=== PATIENT | female | born 1985 | race Caucasian/White ===

== ENCOUNTER 2018-04-29 08:48 | Outpatient (RCR) | payer OTHER, SELFPAY ==
--- NOTE | 2018-04-29 10:57 | PT.OPPOC ---
Current Diagnoses Unspecified condition associated with female genital organs and menstrual cycle (04/29/18) Traumatic rupture of symphysis pubis, sequela (04/29/18) Provider Visit Care Team Role Provider Type Verona Shipman MD Attending Provider Physician Primary Care Provider Specialty: TECHNOLOGY ASSISTANT Address: [address] [place] [address], [address] Email: [email or web address] Plan Of Care PT-OP-T Assessment and Plan Start: 04/29/18 07:27 Freq: Status: Active Protocol: Document 04/29/18 09:00 AMB (Rec: 05/05/18 10:53 AMB [email or web address]) Physical Therapy Assessment Goals Two Impairment LE strength Short Term Goal (STG) The patient will be independent with a LE strenghtening HEP. One Impairment Running Short Term Goal (STG) The patient will run for 10 minutes with good form without pain. STG Duration 4 weeks Assisted Goal (LTG) The patient will run and cut on smooth surfaces without pain. Assessment Summary Assessment Norma presents to physical therapy after a flare up of her pubic pain. She is doing well, although her adductor strength could be improved bilaterally. She was instructed in self joint moblization and exercises to perform if her pain does flare up in the future. Since she has high level goals for herself (running) she will benefit from 1-2 more appointments to fine tune her home exercise program and help her return to running and cutting movements without pain . Physical Therapy Plan Frequency and Duration Frequency of Treatment 1x/month Duration of Treatment 2 months Plan of Care Start Date 04/29/18 Plan of Care End Date 06/27/18 Therapeutic Interventions Therapeutic Interventions Home Exercise Program Joint Mobilizations Manual Therapy Neuromuscular Re-education Self-Care/Home Management Therapeutic Activities Therapeutic Exercises Modalities Cold Pack/Ice Massage Hot Packs Next Visit Focus/Plan Next Note Type Treatment Note Next Visit Plan Follow up on pelvic stabilization progression, return to running Plan of Care Dates Plan of Care Start Date 04/29/18 Plan of Care End Date 06/27/18 Please Sign and Return: I have reviewed this Plan of Care and certify that the skilled therapy services above are required to meet the patient?s needs. Physician Signature Date Printed Name and Credentials Clinical Instructor Signature Printed Name and Credentials
--- NOTE | 2018-04-29 10:57 | PT.OIE ---
Current Diagnoses Unspecified condition associated with female genital organs and menstrual cycle (04/29/18) Traumatic rupture of symphysis pubis, sequela (04/29/18) Past Medical History (Last Updated 04/11/18 @ 09:56 by Rivas Schaefer MD) Symphysis pubis disruption, traumatic (Chronic) Provider Visit Care Team Role Provider Type Verona Shipman MD Attending Provider Physician Primary Care Provider Specialty: COVER MAKER Address: [address] [place] [address], [id number] Email: [email or web address] Physical Therapy Initial Evaluation PT-OP-A Visit Information Start: 04/29/18 07:27 Freq: Status: Active Protocol: Document 04/29/18 09:00 AMB (Rec: 05/03/18 16:07 AMB [email or web address]) Out-Patient Physical Therapy Visit Information Visit Information Visit Type Initial Evaluation Visit Start Time 09:00 Visit Stop Time 09:45 Total Visit Minutes 45 Evaluation Information Evaluation Date 05/03/18 PT-OP-B Current Condition Start: 04/29/18 07:27 Freq: Status: Active Protocol: Document 04/29/18 09:00 AMB (Rec: 05/05/18 10:20 AMB [email or web address]) Current Condition History of Current Condition Onset Date January 2018 Current Complaints pubic symphysis discomfort History of Current Condition Norma was seen by this PT after the of her third child for pubic symphysis pain . She rehabed well and was discharged and has been able to return to all activities with the exception of running over uneven terrain. She also continues to sleep with a pillow between her knees because rolling over without one hurts. However in January she twisted down to the ground to sweet pickle maker something that had fallen from her stroller while running and felt a sharp pain in her pubic symphysis. The pain had mostly subsided after the drive home, but she was unable to continue with her run and was concerned so she scheduled a PT appointment . By the time she got in to be seen the pain has mostly subsided but she is concerned about what to do if the pain returns and in general anything she can do to return to a high level of function. Treatment Goals Patient/Caregiver Goals Learn ways to manage pain if it does come back PT-OP-C Subjective Start: 04/29/18 07:27 Freq: Status: Active Protocol: Document 04/29/18 09:00 AMB (Rec: 05/05/18 10:20 AMB [email or web address]) OP-PT Pain Assessment Pain Assessment Grid Paper Pain Assessment Grid Completed Yes Location pubic Intensity 2 Scale Used Numeric (1 - 10) PT-OP-J Posture/Palpation/Skin Start: 04/29/18 07:27 Freq: Status: Active Protocol: Document 04/29/18 09:00 AMB (Rec: 05/05/18 10:30 AMB [email or web address]) Posture Evaluation Comments Posture Comments L leg long in supine. Palpation Assessment Location One Palpation Location pubis Palpation Details No pain with palpation at pubic bone, L appears inferior to R. PT-OP-M Strength Start: 04/29/18 07:27 Freq: Status: Active Protocol: Document 04/29/18 09:00 AMB (Rec: 05/05/18 10:30 AMB [email or web address]) Hip Strength Hip Manual Muscle Testing Right Flexion (L2) 4+ Good+ Extension (S1) 4+ Good+ Abduction 4- Good- Adduction 4- Good- Left Flexion (L2) 4+ Good+ Extension (S1) 4+ Good+ Abduction 4 Good Adduction 4- Good- PT-OP-Q Treatments Start: 04/29/18 07:27 Freq: Status: Active Protocol: Document 04/29/18 09:00 AMB (Rec: 05/05/18 10:30 AMB [email or web address]) Therapeutic Exercises Supine Exercises 1 Supine Exercise Name instruction in pelvic shotgun Sidelying Exercises 1 Sidelying Exercise Name sidelying hip add 2 Sidelying Exercise Name sidelying hip abd PT-OP-T Assessment and Plan Start: 04/29/18 07:27 Freq: Status: Active Protocol: Document 04/29/18 09:00 AMB (Rec: 05/05/18 10:53 AMB [email or web address]) Physical Therapy Assessment Goals Two Impairment LE strength Short Term Goal (STG) The patient will be independent with a LE strenghtening HEP. One Impairment Running Short Term Goal (STG) The patient will run for 10 minutes with good form without pain. STG Duration 4 weeks Farmworkers Goal (LTG) The patient will run and cut on smooth surfaces without pain. Assessment Summary Assessment Norma presents to physical therapy after a flare up of her pubic pain. She is doing well, although her adductor strength could be improved bilaterally. She was instructed in self joint moblization and exercises to perform if her pain does flare up in the future. Since she has high level goals for herself (running) she will benefit from 1-2 more appointments to fine tune her home exercise program and help her return to running and cutting movements without pain . Physical Therapy Plan Frequency and Duration Frequency of Treatment 1x/month Duration of Treatment 2 months Plan of Care Start Date 04/29/18 Plan of Care End Date 06/27/18 Therapeutic Interventions Therapeutic Interventions Home Exercise Program Joint Mobilizations Manual Therapy Neuromuscular Re-education Self-Care/Home Management Therapeutic Activities Therapeutic Exercises Modalities Cold Pack/Ice Massage Hot Packs Next Visit Focus/Plan Next Note Type Treatment Note Next Visit Plan Follow up on pelvic stabilization progression, return to running
--- NOTE | 2018-05-31 11:07 | PT.OPDS ---
Current Diagnoses Unspecified condition associated with female genital organs and menstrual cycle (04/29/18) Traumatic rupture of symphysis pubis, sequela (04/29/18) Provider Visit Care Team Role Provider Type Verona Shipman MD Attending Provider Physician Primary Care Provider Specialty: BENCH MOLDER APPRENTICE Address: [address] [place] [address], [id number] Email: [email or web address] Visit Number Visit Number 1 Discharge Summary PT-OP-B Current Condition Start: 04/29/18 07:27 Freq: Status: Active Protocol: Document 04/29/18 09:00 AMB (Rec: 05/05/18 10:20 AMB [email or web address]) Current Condition History of Current Condition Onset Date January 2018 Current Complaints pubic symphysis discomfort History of Current Condition Norma was seen by this PT after the of her third child for pubic symphysis pain . She rehabed well and was discharged and has been able to return to all activities with the exception of running over uneven terrain. She also continues to sleep with a pillow between her knees because rolling over without one hurts. 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 The pain had mostly subsided after the drive home, but she was unable to continue with her run and was concerned so she scheduled a PT appointment . By the time she got in to be seen the pain has mostly subsided but she is concerned about what to do if the pain returns and in general anything she can do to return to a high level of function. Treatment Goals Patient/Caregiver Goals Learn ways to manage pain if it does come back PT-OP-C Subjective Start: 04/29/18 07:27 Freq: Status: Active Protocol: Document 04/29/18 09:00 AMB (Rec: 05/05/18 10:20 AMB [email or web address]) OP-PT Pain Assessment Pain Assessment Grid Paper Pain Assessment Grid Completed Yes Location pubic Intensity 2 Scale Used Numeric (1 - 10) PT-OP-J Posture/Palpation/Skin Start: 04/29/18 07:27 Freq: Status: Active Protocol: Document 04/29/18 09:00 AMB (Rec: 05/05/18 10:30 AMB [email or web address]) Posture Evaluation Comments Posture Comments L leg long in supine. Palpation Assessment Location One Palpation Location pubis Palpation Details No pain with palpation at pubic bone, L appears inferior to R. PT-OP-M Strength Start: 04/29/18 07:27 Freq: Status: Active Protocol: Document 04/29/18 09:00 AMB (Rec: 05/05/18 10:30 AMB [email or web address]) Hip Strength Hip Manual Muscle Testing Right Flexion (L2) 4+ Good+ Extension (S1) 4+ Good+ Abduction 4- Good- Adduction 4- Good- Left Flexion (L2) 4+ Good+ Extension (S1) 4+ Good+ Abduction 4 Good Adduction 4- Good- PT-OP-T Assessment and Plan Start: 04/29/18 07:27 Freq: Status: Active Protocol: Document 05/31/18 11:05 AMB (Rec: 05/31/18 11:06 AMB [email or web address]) Physical Therapy Assessment Assessment Summary Assessment Pt canceled her last appointment. In a phone call she states that she is doing her exercises and feeling fine so she is ready to be discharged. Physical Therapy Plan Discharge Physical Therapy Discharge Reasons Goals Met
== END 2018-04-30 11:55 ==
LOC: PHYS 08:48
PROVIDERS: PCP Obstetrics & Gynecology; Visit Provider Obstetrics & Gynecology
DX: N94.9 Unspecified condition associated with female genital organs and menstrual cycle (principal); S33.4XXS Traumatic rupture of symphysis pubis, sequela
CPT/HCPCS: 97110; 97161

== ENCOUNTER 2019-02-16 06:47 | Emergency (ER) | payer OTHER, SELFPAY ==
[2019-02-16 06:56] VITALS: BP 134/74; PULSE 102; RESP 21; TEMP 36.6; O2SAT 99; BMI 24.3
--- NOTE | 2019-02-16 06:57 | DI.RAD.S_ITS ---
PROCEDURE: XR CHEST 2V INDICATIONS: SOB TECHNIQUE: 2 views of the chest were acquired. COMPARISON: None. FINDINGS: Surgical changes and devices: None. Lungs and pleura: Lungs are clear. No pleural effusions or pneumothorax. Mediastinum: Mediastinal contours are normal. Heart size is normal. Bones and chest wall: No suspicious bony abnormalities. Soft tissues appear unremarkable. IMPRESSION: No radiographic findings of an acute cardiopulmonary abnormality. Dictated by: Mauri Edmond M.D. on 02/16/2019 at 7:42 Approved by: Mauri Edmond M.D. on 02/16/2019 at 7:43
[2019-02-16] MEDS: SODIUM CHLORIDE 0.9% 1,000 ML 1000 ML IV (07:14)
--- NOTE | 2019-02-16 07:17 | PC.NURSE ---
Pt arrived POV with , AAOx3. reports she was dx with walking pneumonia and placed on zpack. reports nausea and took 1 zofran and was dizzy/lightheaded shortly after and SOB. IV placed and labs drawn. EKG obtained. awaiting CXR. Dr Bar in room to assess.
--- NOTE | 2019-02-16 07:29 | ED.DIZZY ---
HPI - Dizziness General Chief Complaint: Dizziness Stated Complaint: reaction to medicine she took Time Seen by Provider: 02/16/19 06:56 Source: patient Mode of arrival: Family Vehicle Limitations: no limitations History of Present Illness HPI Narrative: Patient comes emergency department complaining nausea cough, shortness breath, and fever for the last approximately 6 days. Patient states that she was exposed to ?walking pneumonia? and went to the walk-in clinic 6 days ago. X-ray was not performed, but provider started the patient on Zithromax ?just in case? she had picked up pneumonia. The patient states her cough seemed to get a little bit better after the Zithromax is started, but she has been feeling nauseated ever since starting the medication. She states that she also had 1 episode of diarrhea on the 1st day of the Zithromax. Patient has been taking Zofran, and states that she been feeling generally ill. She states she has been in bed for the last few days because of the nausea. She states that last night, she began to feel unwell and took her temperature and found it was 101. Patient states that she took a Zofran, and she began to feel dizzy. At that point, patient and her decided to come here. Patient denies any dysuria. No abdominal pain. No chest pain. patient states she feels like she has to catch her breath after talking. She states she had some sore throat initially, but that this has resolved. Patient states she is otherwise healthy. She states she had urosepsis to nap years ago after her child was born. She denies any pain or swelling in her lower extremities. She states she has a possible history of uterine veins clot, but was not on prolonged anticoagulation for this. No family history of DVT. No other complaints at this time. Related Data Previous Rx's Medication Instructions Recorded alprazolam 1 mg tablet 1 mg PO ONCE PRN #6 tab 01/07/19 azithromycin 250 mg tablet See Rx Instructions PO .COMPLEX #6 02/10/19 tab Allergies Allergy/AdvReac Type Severity Reaction Status Date / Time amoxicillin [From AUGMENTIN] Allergy Mild hives Verified 02/10/19 09:16 clavulanic acid Allergy Mild hives Verified 02/10/19 09:16 [From AUGMENTIN] Review of Systems Constitutional Constitutional: Denies chills, Denies fatigue, Reports fever(s), Denies frequent falls, Denies lethargy and Denies weakness Eyes Eyes: Denies change in vision, Denies eye discharge, Denies irritation and Denies loss of vision ENT Ears, Nose, Mouth, and Throat: Denies change in voice, Denies dizziness, Denies neck pain, Denies sore throat and Denies throat swelling Cardiovascular Cardiovascular: Denies chest pain, Denies irregular heart rhythm, Denies lightheadedness, Denies palpitations, Reports dyspnea and Denies orthopnea Respiratory Respiratory: Reports cough, Reports dyspnea and Denies wheezing Gastrointestinal Gastrointestinal: Denies abdominal pain, Denies change in bowel habits, Denies diarrhea, Reports nausea and Denies vomiting Genitourinary Genitourinary: Denies hematuria, Denies flank pain, Denies urinary incontinence and Denies urinary urgency Musculoskeletal Musculoskeletal: Denies back pain, Denies muscle weakness, Denies neck pain, Denies numbness and Denies tingling Integumentary/Breasts Skin/Breast: Denies pruritus, Denies erythema, Denies rash and Denies wounds Neurologic Neurologic: Denies behavioral changes, Denies confusion, Denies dizziness, Denies frequent falls, Denies loss of vision, Denies numbness, Denies tingling and Denies weakness Psychiatric Psychiatric: Denies anxiety, Denies behavioral changes, Denies confusion, Denies depression, Denies homicidal ideation and Denies suicidal ideation Endocrine Endocrine: Denies fatigue, Denies flushing and Denies palpitations Hematologic/Lymphatic Hematologic/Lymphatic: Denies easy bruising Allergic/Immunologic Allergic/Immunologic: Denies urticaria, Denies throat swelling and Denies wheezing Patient History Medical History Spontaneous vaginal delivery (Resolved) Symphysis pubis disruption, traumatic (Chronic) Family History Grandmother Cancer Father Atrial fibrillation Social History marital status: number of children: 3 education level: master's degree occupational status: other Smoking Status: Never smoker alcohol intake: current substance use type: does not use Family History Grandmother Cancer Father Atrial fibrillation Social History marital status: number of children: 3 education level: master's degree occupational status: other Smoking Status: Never smoker alcohol intake: current substance use type: does not use alcohol intake frequency: a few times a week Substance Use Type: does not use Exam Initial Vital Signs Initial Vital Signs: Vital Signs Temperature 97.8 F 02/16/19 06:56 Pulse Rate 102 H 02/16/19 06:56 Respiratory Rate 21 02/16/19 06:56 Blood Pressure 134/74 02/16/19 06:56 Pulse Oximetry 99 02/16/19 06:56 Const General: cooperative and well developed Nutritional Appearance: well nourished Orientation: alert, awake, oriented x3 and not confused HENMT Head: normocephalic and atraumatic Ears: external ears normal and TM's normal bilaterally Nose: external nose normal and No nasal discharge Face and sinus: face symmetric and No dry mucous membranes Mouth: oral mucosae normal and moist mucous membranes Teeth and gingiva: dentition normal Throat: tonsils normal and uvula midline Eyes General: appearance normal, both eyes and all related structures Eyelids: eyelids normal Conjunctivae: conjunctivae normal Sclera: sclerae normal Pupils: PERRL EOM: EOM intact bilaterally Neck Neck: normal visual inspection, trachea midline, No lymphadenopathy, No midline deformity and No JVD Lymphatic: No lymphedema Chest Chest: normal inspection of the chest Resp Effort & Inspection: normal respiratory effort, able to speak in complete sentences, no respiratory distress and no use of accessory muscles Auscultation: clear to auscultation bilaterally, no rales, no rhonchi and no wheezes Cardio Rate: regular rate Rhythm: regular rhythm Heart Sounds: no click, no gallops, no murmurs and no rubs Pulses: normal peripheral pulses GI Inspection: non-distended Palpation: soft, no hepatosplenomegaly, No guarding, No pulsatile mass and No tender Auscultation: normal bowel sounds Back/Spine/Pelvis Back: No CVA tenderness Cervical Spine: cervical ROM normal and No pain with cervical ROM Thoracic/Lumbar Spine: thoracic and lumbar spine normal to inspection Skin General: no rashes or lesions noted, No jaundice and No petechiae Neuro General: alert, oriented x3, gait normal and no focal motor deficits Speech: speech normal Extrem General: full ROM, no clubbing, cyanosis or edema, no pedal edema and no calf tenderness Psych Appearance: well kempt Mental Status: mental status grossly normal Attitude: cooperative Thought Content: normal and suicidality Judgment: judgment good Course Course Course Narrative: Patient was treated with IV fluids and Zofran. She was worked up with labs, EKG, chest x-ray, urinalysis, strep test, and influenza testing. Workup was negative except for the D-dimer, which was significantly elevated. Because of the patient's symptoms and her elevated D-dimer, I did order a CTA of the chest, which was found to be unremarkable. I discussed with the patient that her symptoms are most likely viral in nature, and will most likely be self-limited. We have discussed follow-up with her primary care physician, as well as the usual indications for return. No emergent condition has been identified today. Orders Ordered: Discontinued Medications Sodium Chloride (Normal Saline 0.9%) 1,000 mls @ 1,000 mls/hr IV BOLUS ONE Stop: 02/16/19 07:55 Last Infusion: 02/16/19 08:07 Dose: 0 mls/hr Documented by: Admin: 02/16/19 07:14 Dose: 1,000 mls/hr Documented by: TRELL Vital Signs Vital signs: Vital Signs - 8 hr 02/16/19 06:56 Temperature 97.8 F Pulse Rate 102 H Respiratory Rate 21 Blood Pressure 134/74 Pulse Oximetry 99 MDM - Dizziness Medical Records Attestation: I reviewed the patient's medical records. Lab Data Attestation: I reviewed the patient's lab results. Result diagrams: 02/16/19 07:32 02/16/19 07:32 Labs: Lab Results 02/16/19 02/16/19 02/16/19 Range/Units 07:32 07:32 07:32 WBC 5.7 (4.5-11.0) X10^3/uL RBC 4.78 (4.0-5.2) X10^6/uL Hgb 14.9 (12.0-16.0) g/dL Hct 42.5 (36-46) % MCV 88.9 (80-100) fL MCH 31.1 (26-34) PG MCHC 35.0 (30-36) % RDW 12.0 (11.6-14.8) % Plt Count 258 (150-400) X10^3/uL Neut % (Auto) 62.4 (50-75) % Lymph % (Auto) 30.8 (25-40) % [place] % (Auto) 5.9 (3-14) % Eos % (Auto) 0.6 L (2-4) % Baso % (Auto) 0.3 (0-2) % Neut # (Auto) 3600 (4476-6919) /uL Lymph # (Auto) 1800 (3435-5852) /uL [place] # (Auto) 300 (0-900) /uL Eos # (Auto) 0 (0-450) /uL Baso # (Auto) 0 (0-100) /uL D-Dimer 306 H (<230) ng/mL Sodium 137 (137-145) mmol/L Potassium 4.2 (3.4-5.1) mmol/L Chloride 101 (98-107) mmol/L Carbon Dioxide 25 (22-32) mmol/L BUN 14 (7-17) mg/dL Creatinine 0.90 (0.52-1.04) mg/dL Estimated GFR > 60.0 (>60) mL/min BUN/Creatinine Ratio 15.6 (6-22) Glucose 96 (70-100) mg/dL Calcium 9.4 (8.4-10.2) mg/dL Magnesium 2.1 (1.6-2.3) mg/dL Total Creatine Kinase 92 (30-135) U/L CK-MB (CK-2) TNP CK-MB (CK-2) Rel Index TNP Troponin I < 0.012 (0.01-0.034) ng/mL Influenza A & B (PCR) (Negative) 02/16/19 Range/Units 07:39 WBC (4.5-11.0) X10^3/uL RBC (4.0-5.2) X10^6/uL Hgb (12.0-16.0) g/dL Hct (36-46) % MCV (80-100) fL MCH (26-34) PG MCHC (30-36) % RDW (11.6-14.8) % Plt Count (150-400) X10^3/uL Neut % (Auto) (50-75) % Lymph % (Auto) (25-40) % [place] % (Auto) (3-14) % Eos % (Auto) (2-4) % Baso % (Auto) (0-2) % Neut # (Auto) (4655-1409) /uL Lymph # (Auto) (1327-6117) /uL [place] # (Auto) (0-900) /uL Eos # (Auto) (0-450) /uL Baso # (Auto) (0-100) /uL D-Dimer (<230) ng/mL Sodium (137-145) mmol/L Potassium (3.4-5.1) mmol/L Chloride (98-107) mmol/L Carbon Dioxide (22-32) mmol/L BUN (7-17) mg/dL Creatinine (0.52-1.04) mg/dL Estimated GFR (>60) mL/min BUN/Creatinine Ratio (6-22) Glucose (70-100) mg/dL Calcium (8.4-10.2) mg/dL Magnesium (1.6-2.3) mg/dL Total Creatine Kinase (30-135) U/L CK-MB (CK-2) CK-MB (CK-2) Rel Index Troponin I (0.01-0.034) ng/mL Influenza A & B (PCR) Negative (Negative) Point of Care Testing Test Results Negative Rapid Strep A Negative Urine Dip Bedside Urine Glucose Negative Bedside Urine Bilirubin - Negative Bedside Urine Ketone - Negative Urine Specific [place] 1.005 Bedside Urine Occult Blood - Negative Bedside Urine pH 6.5 Bedside Urine Protein - Negative Bedside Urine Urobilinogen - Negative Bedside Urine Nitrite - Negative Bedside Urine Leukocytes - Negative Esterase Imaging Data Chest x-ray: Radiologist's impression: PROCEDURE: XR CHEST 2V INDICATIONS: SOB TECHNIQUE: 2 views of the chest were acquired. COMPARISON: None. FINDINGS: Surgical changes and devices: None. Lungs and pleura: Lungs are clear. No pleural effusions or pneumothorax. Mediastinum: Mediastinal contours are normal. Heart size is normal. Bones and chest wall: No suspicious bony abnormalities. Soft tissues appear unremarkable. IMPRESSION: No radiographic findings of an acute cardiopulmonary abnormality. Dictated by: Mauri Edmond M.D. on 02/16/2019 at 7:42 Approved by: Mauri Edmond M.D. on 02/16/2019 at 7:43 CT scan - chest: Radiologist's impression: PROCEDURE: CT ANGIO CHEST PE PROTOCOL INDICATIONS: shortness of breath, fever, elevated d-dimer TECHNIQUE: After the administration of intravenous contrast, 2 mm thick sections acquired from the pulmonary apices to the posterior costophrenic angles. 3-dimensional maximum intensity projection (MIP) coronal and sagittal reformats were then acquired through the thorax. For radiation dose reduction, the following was used: automated exposure control, adjustment of mA and/or kV according to patient size. COMPARISON: Merged With [facility], , XR CHEST 2V, 02/16/2019, 7:37. FINDINGS: Image quality: Excellent. Pulmonary arteries: Pulmonary arteries are normal in size, and demonstrate no intraluminal filling defects to suggest central pulmonary embolism. Lungs and pleura: Lungs are clear. No pleural effusions or pneumothorax. Central and peripheral airways are patent. Mediastinum: Heart size is normal, without pericardial effusion. Residual thymic tissue. No mediastinal or hilar adenopathy. Thoracic aorta is normal in caliber and enhancement. Esophagus is normal in caliber, without hiatal hernia. Bones and chest wall: No suspicious bony lesions. Ribs and thoracic spine appear intact throughout. Thyroid gland unremarkable. No axillary or supraclavicular adenopathy. Abdomen: Visualized upper abdominal solid organs appear normal in the early arterial phase of enhancement. IMPRESSION: No pulmonary embolus. Dictated by: Mauri Edmond M.D. on 02/16/2019 at 7:47 Approved by: Mauri Edmond M.D. on 02/16/2019 at 7:52 Discharge Plan Departure Patient Disposition: Home Clinical Impression: Acute viral syndrome, Acute febrile illness Discharge Date/Time: 02/16/19 09:55 Instructions: DI for Viral Syndrome Activity Restrictions/Additional Instructions: Extensive workup today has been unremarkable. Your white blood cell count is normal. Your test for strep and influenza are both negative. Your urinalysis is negative. Your chest x-ray is clear. The laboratory studies that we check to screen for potential blood clot was elevated. There are a variety of reasons this lab can be elevated, but given your history, as well as your current symptoms, CT angiogram of the chest was performed to evaluate for potential blood clot in the lungs. This was found to be negative. At this point in time, you have most likely contracted 1 of the many flu-like viruses that go around this time of year. These are similar to influenza, but do not trigger a positive test. We have been seeing quite a few cases like this recently. Because of the viral nature of these illnesses, the resolve on their own, and are not responsive to antibiotics. It is not clear whether you had pneumonia initially, but you most definitely do not at this time. Please drink plenty of fluids, and take ibuprofen 600 mg every 6 hours and Tylenol 650 mg every 4 hours, as needed for fever. You may use the Zofran if it does not cause unpleasant side effects for you. However, if he find that you are feeling worse after taking the Zofran, then it is better to hold off. Please follow up with your primary care physician if you're not feeling better after the next 3 days. Prescriptions: No Action azithromycin 250 mg tablet See Rx Instructions PO .COMPLEX Qty: 6 RF: 0 alprazolam 1 mg tablet 1 mg PO ONCE PRN (Reason: anxiety) Qty: 6 RF: 0 Referrals: Cassie Lau MD [Primary Care Provider] -
[2019-02-16 07:51] LABS: Add Manual Diff / Slide Review NO; Basophils Absolute Auto 0 /uL (0-100); Basophils Percent Auto 0.3 % (0-2); Eosinophils Absolute Auto 0 /uL (0-450); Eosinophils Percent Auto 0.6 % (2-4); Hematocrit 42.5 % (36-46); Hemoglobin 14.9 g/dL (12.0-16.0); Lymphocytes Absolute Auto 1800 /uL (1100-4500); Lymphocytes Percent Auto 30.8 % (25-40); Mean Corpuscular Hemoglobin 31.1 PG (26-34); Mean Corpuscular Volume 88.9 fL (80-100); Monocytes Absolute Auto 300 /uL (0-900); Monocytes Percent Auto 5.9 % (3-14); Neutrophils Absolute Auto 3600 /uL (1500-7000); Neutrophils Percent Auto 62.4 % (50-75); Platelet Count 258 X10^3/uL (150-400); Red Blood Cell Count 4.78 X10^6/uL (4.0-5.2); White Blood Cell Count 5.7 X10^3/uL (4.5-11.0)
[2019-02-16 07:53] LABS: BUN Creatinine Ratio 15.6 (6-22); Blood Urea Nitrogen 14 mg/dL (7-17); Calcium 9.4 mg/dL (8.4-10.2); Carbon Dioxide 25 mmol/L (22-32); Chloride 101 mmol/L (98-107); Creatine Kinase 92 U/L (30-135); D Dimer 306 ng/mL (<230); Estimated Glomerular Filt Rate > 60.0 mL/min (>60); Glucose 96 mg/dL (70-100); HEMOLYSIS < 15 (0-50); Magnesium 2.1 mg/dL (1.6-2.3); Potassium 4.2 mmol/L (3.4-5.1); Sodium 137 mmol/L (137-145)
[2019-02-16 08:05] LABS: Troponin I < 0.012 ng/mL (0.01-0.034)
--- NOTE | 2019-02-16 08:12 | DI.CT.S_ITS ---
PROCEDURE: CT ANGIO CHEST PE PROTOCOL INDICATIONS: shortness of breath, fever, elevated d-dimer TECHNIQUE: After the administration of intravenous contrast, 2 mm thick sections acquired from the pulmonary apices to the posterior costophrenic angles. 3-dimensional maximum intensity projection (MIP) coronal and sagittal reformats were then acquired through the thorax. For radiation dose reduction, the following was used: automated exposure control, adjustment of mA and/or kV according to patient size. COMPARISON: Located Within [facility], CR, XR CHEST 2V, 02/16/2019, 7:37. FINDINGS: Image quality: Excellent. Pulmonary arteries: Pulmonary arteries are normal in size, and demonstrate no intraluminal filling defects to suggest central pulmonary embolism. Lungs and pleura: Lungs are clear. No pleural effusions or pneumothorax. Central and peripheral airways are patent. Mediastinum: Heart size is normal, without pericardial effusion. Residual thymic tissue. No mediastinal or hilar adenopathy. Thoracic aorta is normal in caliber and enhancement. Esophagus is normal in caliber, without hiatal hernia. Bones and chest wall: No suspicious bony lesions. Ribs and thoracic spine appear intact throughout. Thyroid gland unremarkable. No axillary or supraclavicular adenopathy. Abdomen: Visualized upper abdominal solid organs appear normal in the early arterial phase of enhancement. IMPRESSION: No pulmonary embolus. Dictated by: Mauri Edmond M.D. on 02/16/2019 at 7:47 Approved by: Mauri Edmond M.D. on 02/16/2019 at 7:52
[2019-02-16 08:33] LABS: Influenza A and B by PCR Rapid Negative (Negative)
[2019-02-16 09:41] VITALS: BP 120/73; PULSE 90; RESP 16; TEMP 36.8; O2SAT 100
== END 2019-02-16 09:55 | disposition home or self-care (01) ==
PROVIDERS: Emergency Medicine; Emergency Provider Emergency Medicine; PCP Family Medicine
DX: B34.9 Viral infection, unspecified (principal); R50.9 Fever, unspecified; R11.2 Nausea with vomiting, unspecified; R06.02 Shortness of breath
CPT/HCPCS: 36415; 71046; 71275; 80048; 81003; 81025; 82550; 83735; 84484; 85025; 85379; 87502; 87880; 93005; 96360; 99283; 99285; Q9967

== ENCOUNTER → 2022-03-17 07:47 | Outpatient (CLI) | payer OTHER, SELFPAY ==
[2022-03-17 09:53] LABS: Hemoglobin A1C% w Est Avg Glu 5.1 % (4.0-6.0)
[2022-03-17 10:08] LABS: Cholesterol 200 mg/dL (140-199); HDL Cholesterol 61 mg/dL (40-60); LDL Cholesterol Calculated 120 mg/dL (<100); Triglycerides 95 mg/dL (35-150)
== END ==
PROVIDERS: PCP Family Medicine; Referring Provider Family Medicine; Visit Provider Family Medicine
DX: R73.03 Prediabetes (principal)
CPT/HCPCS: 36415; 80061; 83036

== ENCOUNTER 2023-04-14 01:26 | Emergency (ER) | payer OTHER, SELFPAY ==
[2023-04-14 01:34] VITALS: BP 133/78; PULSE 86; RESP 18; TEMP 36.4; O2SAT 100; BMI 33.0
[2023-04-14 01:53] LABS: RBC Urine 1-5/HPF (0-5/HPF); WBC Urine 10-30/HPF (0-5/HPF)
[2023-04-14 01:54] LABS: Bacteria Urine Moderate (10-30); Culture Indicated Urine Specimen Cultured; Squamous Epithelial Cell Urine 1-5 /HPF (0-5/HPF)
--- NOTE | 2023-04-14 02:00 | ED.FEMALEGU ---
HPI - Female Genitourinary General Chief complaint: Urogenital-Female Stated complaint: uti, abd pain, chills Time Seen by Provider: 04/14/23 01:27 Source: patient Mode of arrival: Ambulatory History of Present Illness HPI Narrative: 38-year-old female presents for bilateral flank pain, urinary frequency, foul urine smell for the last 2 days. Patient states that she has a history of sepsis from a urinary tract infection 6 years ago and so now when she gets urinary symptoms she becomes more cautious. She attempted to reach out to the on-call physician for her primary group, however no one was available and so she decided to present for evaluation. She reports fevers and chills at home, took Motrin prior to arrival. Denies possibility of , currently on her menstrual cycle. Related Data Previous Rx's Medication Instructions Recorded cephalexin 750 mg capsule 750 mg PO TID #21 caps 02/23/22 fluoxetine 20 mg capsule See Rx Instructions PO DAILY #90 02/27/22 caps alprazolam 1 mg tablet 1 mg PO ONCE PRN anxiety #6 tabs 03/14/23 cefpodoxime 200 mg tablet 200 mg PO Q12H #28 tabs 04/14/23 Allergies Allergy/AdvReac Type Severity Reaction Status Date / Time amoxicillin [From AUGMENTIN] Allergy Mild hives Verified 02/27/22 13:39 clavulanic acid Allergy Mild hives Verified 02/27/22 13:39 [From AUGMENTIN] Review of Systems Review of Systems Narrative: Negative except as noted above Patient History Medical History (Updated 04/14/23 @ 02:00 by Jessica Geronimo MD) Symphysis pubis disruption, traumatic Spontaneous vaginal delivery Family History Grandmother Cancer Father Atrial fibrillation alcohol intake frequency: a few times a week Substance Use Type: does not use Exam Initial Vital Signs Initial Vital Signs: Vital Signs Temperature 97.6 F 04/14/23 01:34 Pulse Rate 86 04/14/23 01:34 Respiratory Rate 18 04/14/23 01:34 Blood Pressure 133/78 04/14/23 01:34 Pulse Oximetry 100 04/14/23 01:34 Oxygen Delivery Method Room Air 04/14/23 01:34 Const: Awake, alert, no acute distress, nontoxic appearing Eyes: PERRL, EOMI, conjunctiva normal ENT: Atraumatic, dentition normal, mucous membranes moist Cardiac: regular rate, regular rhythm RESP: unlabored, clear bilaterally, no wheezing GI: Atraumatic, soft, nontender, nondistended, no rebound, no guarding MSK: Atraumatic, full range of motion, pulses equal Skin: Warm, Dry, intact, no rashes Neuro: AO x3, CN II-XII grossly intact, moves all extremities Psych: affect normal, mood normal, not suicidal, not homicidal Course Course Course Narrative: Well appearing patient with acute uncomplicated pyelonephritis. Urine positive for leukocyte esterase and nitrites. There is blood present, however patient is currently on her menstrual cycle. Denies recent antibiotic use. Dose of keflex given in department, rx for cefpodoxime sent to pharmacy of choice. ED return precautions discussed at bedside. Patient expressed understanding of the plan and is in agreement at this time. All questions answered at the time of discharge. Orders Ordered: ED Orders 04/14/23 01:40 Urine Culture Stat Urine Microscopic Stat Vital Signs Vital signs: Vital Signs - 8 hr 04/14/23 01:34 Temperature 97.6 F Pulse Rate 86 Respiratory Rate 18 Blood Pressure 133/78 Pulse Oximetry 100 Oxygen Delivery Method Room Air MDM - Female Genitourinary Lab Data Labs: Lab Results 04/14/23 Range/Units 01:40 Urine RBC 1-5/hpf (0-5/HPF) Urine WBC 10-30/hpf H (0-5/HPF) Ur Squamous Epith Cells 1-5 /hpf (0-5/HPF) Urine Bacteria Moderate (10-30) H (None) Ur Culture Indicated? Specimen cultured Point of Care Testing Test Results Negative Urine Dip Bedside Urine Glucose Negative Bedside Urine Bilirubin - Negative Bedside Urine Ketone - Negative Urine Specific [place] 1.02 Bedside Urine Occult Blood +++ Bedside Urine pH 6.0 Bedside Urine Protein - Negative Bedside Urine Urobilinogen - Negative Bedside Urine Nitrite + Positive Bedside Urine Leukocytes + 70 Esterase Discharge Plan Departure Patient Disposition: Home Clinical Impression: Pyelonephritis Instructions: DI for Kidney Infection Prescriptions: New cefpodoxime 200 mg tablet 200 mg PO Q12H Qty: 28 0RF Rx Instructions: must administer with a meal/food No Action fluoxetine 20 mg capsule See Rx Instructions PO DAILY Qty: 90 3RF Rx Instructions: Take one capsule daily. cephalexin 750 mg capsule 750 mg PO TID Qty: 21 0RF alprazolam 1 mg tablet 1 mg PO ONCE PRN (Reason: anxiety) Qty: 6 0RF Rx Instructions: For use with flying Referrals: Cassie Lau MD [Primary Care Provider] - Stand Alone Forms: Patient Portal/API
[2023-04-14] MEDS: cephALEXin 250 MG CAPSULE 1000 MG PO (02:06)
[2023-04-14 02:15] VITALS: BP 123/60; PULSE 70; RESP 16; TEMP 36.4; O2SAT 99
== END 2023-04-14 02:16 | disposition home or self-care (01) ==
PROVIDERS: Emergency Provider Emergency Medicine; PCP Family Medicine
DX: N12 Tubulo-interstitial nephritis, not specified as acute or chronic (principal); B96.20 Unspecified Escherichia coli [E. coli] as the cause of diseases classified elsewhere
CPT/HCPCS: 81003; 81015; 81025; 87077; 87086; 87186; 99283

== ENCOUNTER → 2023-04-20 14:44 | Outpatient (CLI) | payer OTHER, SELFPAY ==
[2023-04-20 16:02] LABS: Add Manual Diff / Slide Review NO; Basophils Absolute Auto 0 /uL (0-100); Basophils Percent Auto 0.2 % (0-2); Eosinophils Absolute Auto 200 /uL (0-450); Eosinophils Percent Auto 1.8 % (2-4); Hematocrit 39.2 % (36-46); Hemoglobin 13.5 g/dL (12.0-16.0); Lymphocytes Absolute Auto 1800 /uL (1100-4500); Lymphocytes Percent Auto 16.5 % (25-40); Mean Corpuscular HGB Conc 34.4 % (30-36); Monocytes Absolute Auto 500 /uL (0-900); Neutrophils Absolute Auto 8100 /uL (1500-7000); Neutrophils Percent Auto 76.5 % (50-75); Platelet Count 283 X10^3/uL (150-400); Red Blood Cell Count 4.35 X10^6/uL (4.0-5.2); Red Cell Distribution Width 12.3 % (11.6-14.8); White Blood Cell Count 10.6 X10^3/uL (4.5-11.0)
[2023-04-20 16:12] LABS: Appearance Urine UA CLEAR; Bilirubin Urine UA NEGATIVE (NEGATIVE); Color Urine UA YELLOW; Glucose Urine UA NEGATIVE (Negative); Ketones Urine UA NEGATIVE (NEGATIVE); Leukocyte Esterase Urine UA NEGATIVE (NEGATIVE); Nitrite Urine UA NEGATIVE (Negative); Occult Blood Urine UA TRACE-INTACT (Negative); Protein Urine UA NEGATIVE (Negative); Specific Gravity Urine UA 1.015 (1.000-1.035); Urobilinogen Urine UA 0.2 E.U./dL (0.2)
[2023-04-20 16:26] LABS: Bacteria Urine Occasional (0-1); Culture Indicated Urine Cult Not Indicated; RBC Urine 0-1/HPF (0-5/HPF); Squamous Epithelial Cell Urine 0-1 /HPF (0-5/HPF); WBC Urine 0-1/HPF (0-5/HPF)
== END ==
PROVIDERS: PCP Family Medicine; Referring Provider Family Medicine; Visit Provider Family Medicine
DX: N12 Tubulo-interstitial nephritis, not specified as acute or chronic (principal)
CPT/HCPCS: 36415; 81001; 81003; 85025

== ENCOUNTER → 2023-05-04 14:19 | Outpatient (CLI) | payer OTHER, SELFPAY ==
--- NOTE | 2023-05-04 14:20 | DI.MG.S_ITS ---
BILATERAL DIGITAL SCREENING MAMMOGRAM 3D/2D WITH CAD: 05/04/2023 CLINICAL: Routine screening. Baseline exam. Family history of breast cancer. No prior exams were available for comparison. Both breasts are heterogeneously dense, which may obscure small masses (category c / 51-75% glandular tissue). Current study was also evaluated with a Computer Aided Detection (CAD) system. There is possible architectural distortion in the right breast middle depth central to the nipple seen on the mediolateral oblique view only. No other significant masses, calcifications, or other findings are seen in either breast. IMPRESSION: INCOMPLETE: NEEDS ADDITIONAL IMAGING EVALUATION The possible architectural distortion in the right breast is indeterminate. Additional views with possible ultrasound are recommended. Based on the Tyrer Cuzick model (a risk assessment model) the patient's lifetime risk is 18.6% and her 10 year risk is 2.4%. According to the ACR, ACS, and NCCN guidelines, an annual breast MRI exam along with mammogram is recommended if the patient's lifetime risk is 20% or greater. This exam was interpreted at Station ID: [id number]. NOTE: For mammograms, a report in lay terms will be sent to the patient. Approximately 15% of breast malignancies will not be visualized mammographically. In the management of a palpable breast mass, a negative mammogram must not discourage biopsy of a clinically suspicious lesion. Electronically Signed By: Jose Cesar M.D. lc/:05/04/2023 15:15:59 letter sent: Additional Imaging Needed ACR BI-RADS Category 0: Incomplete [id number]
== END ==
LOC: MAMMO 14:19
PROVIDERS: PCP Family Medicine; Referring Provider Family Medicine; Visit Provider Family Medicine
DX: Z12.31 Encounter for screening mammogram for malignant neoplasm of breast (principal); Z80.3 Family history of malignant neoplasm of breast; R92.333 Mammographic heterogeneous density, bilateral breasts
CPT/HCPCS: 77063; 77067

== ENCOUNTER → 2023-05-18 08:56 | Outpatient (CLI) | payer OTHER, SELFPAY ==
--- NOTE | 2023-05-18 | DI.MG.S_ITS ---
UNILATERAL RIGHT DIGITAL DIAGNOSTIC MAMMOGRAM 3D/2D WITH ADDITIONAL VIEWS: 05/18/2023 CLINICAL: Additional evaluation requested from prior study. Comparison is made to exam dated: 05/04/2023 mammogram - [facility]. The right breast is heterogeneously dense, which may obscure small masses (category c / 51-75% glandular tissue). The previously described possible architectural distortion in the right breast posterior depth central to the nipple seen on the mediolateral oblique view only is no longer seen and most likely is fibroglandular tissue. This is not seen in additional views and is consistent with summation artifact. No other significant masses or calcifications are seen in the breast. IMPRESSION: BENIGN The previously described asymmetry disperses with additional views and is consistent with summation artifact. There is no mammographic evidence of malignancy. A 1 year screening mammogram is recommended. Findings and recommendations were conveyed to the patient during today's evaluation. Based on the Tyrer Cuzick model (a risk assessment model) the patient's lifetime risk is 19.0% and her 10 year risk is 2.5%. According to the ACR, ACS, and NCCN guidelines, an annual breast MRI exam along with mammogram is recommended if the patient's lifetime risk is 20% or greater. This exam was interpreted at Station ID: [id number]. NOTE: For mammograms, a report in lay terms will be sent to the patient. Approximately 15% of breast malignancies will not be visualized mammographically. In the management of a palpable breast mass, a negative mammogram must not discourage biopsy of a clinically suspicious lesion. Electronically Signed By: Rod Christian M.D. aty/:05/18/2023 09:25:11 letter sent: Normal Exam ACR BI-RADS Category 2: Benign Finding(s) [id number]
== END ==
LOC: MAMMO 08:56
PROVIDERS: PCP Family Medicine; Referring Provider Family Medicine; Visit Provider Family Medicine
DX: R92.8 Other abnormal and inconclusive findings on diagnostic imaging of breast (principal); R92.331 Mammographic heterogeneous density, right breast
CPT/HCPCS: 77065; G0279

== ENCOUNTER → 2023-06-22 15:17 | Outpatient (CLI) | payer OTHER, SELFPAY | PROVIDERS: PCP Family Medicine; Visit Provider Family Medicine | DX: R39.9 Unspecified symptoms and signs involving the genitourinary system (principal) | CPT/HCPCS: 87077; 87086; 87186 ==

== ENCOUNTER → 2023-06-27 13:41 | Outpatient (CLI) | payer OTHER, SELFPAY ==
--- NOTE | 2023-06-27 13:42 | DI.US.S_ITS ---
PROCEDURE: US PELVIC COMPLETE INDICATIONS: IRREGULAR MENSES TECHNIQUE: Real-time scanning was performed of the pelvic organs, with image documentation. Additional endovaginal scanning was necessary due to incomplete visualization of the adnexal and endometrial structures by transabdominal scanning. COMPARISON: None. FINDINGS: Uterus: Uterus is anteverted and normal in size at 8.7 x 5.1 x 4.0 cm. The myometrium is homogeneous. The endometrium measures 8 mm combined thickness. Hypoechoic region in the anterior, mid uterine segment measuring 5 x 5 x 3 millimeters. Ovaries: The right ovary measures 4.6 x 2.6 x 2.2 cm, with a calculated ovarian volume of 14 cc. The left ovary measures 2.4 x 1.8 x 1.9 cm, with a calculated ovarian volume of 4 cc. The ovaries have a normal sonographic appearance. Less than 12 follicles can be seen in each ovary. No adnexal masses are seen. Other: No pathologic free abdominal or pelvic fluid. IMPRESSION: Less than 12 follicles per ovary. Hypoechoic region in the anterior, mid uterine segment measuring 5 millimeters, probably a small intramural fibroid. We strive to produce accurate, complete, and clear reports of imaging services. To assist us in improving patient care, this report was composed using standard report templates and voice recognition software. Therefore, it may contain abnormal punctuation, insertions and/or omissions. Occasional wrong-word or sound-alike substitutions may occur. Though we review the report and make efforts to correct it, we do recommend that the report be read carefully in proper context to recognize any text inaccuracies. Dictated by: Mj Mora M.D. on 06/27/2023 at 14:47 Approved by: Mj Mora M.D. on 06/27/2023 at 14:49
== END ==
LOC: US 13:41
PROVIDERS: PCP Family Medicine; Referring Provider Family Medicine; Visit Provider Family Medicine
DX: N92.6 Irregular menstruation, unspecified (principal); R30.0 Dysuria
CPT/HCPCS: 76830; 76856; 81001

== ENCOUNTER → 2023-06-27 14:12 | Outpatient (CLI) | payer OTHER, SELFPAY ==
[2023-06-27 15:19] LABS: Appearance Urine UA CLEAR; Bilirubin Urine UA NEGATIVE (NEGATIVE); Color Urine UA YELLOW; Glucose Urine UA NEGATIVE (Negative); Ketones Urine UA NEGATIVE (NEGATIVE); Leukocyte Esterase Urine UA NEGATIVE (NEGATIVE); Nitrite Urine UA NEGATIVE (Negative); Occult Blood Urine UA TRACE-INTACT (Negative); Protein Urine UA NEGATIVE (Negative)
[2023-06-27 15:45] LABS: Bacteria Urine None Seen; Culture Indicated Urine Cult Not Indicated; RBC Urine 1-5/HPF (0-5/HPF); Squamous Epithelial Cell Urine None Seen (0-5/HPF); Urine Volume 10mL (spun); WBC Urine None Seen (0-5/HPF)
== END ==
PROVIDERS: PCP Family Medicine; Referring Provider Family Medicine; Visit Provider Family Medicine
DX: R30.0 Dysuria (principal)
CPT/HCPCS: 81001

== ENCOUNTER → 2023-07-31 14:14 | Outpatient (CLI) | payer OTHER, SELFPAY ==
--- NOTE | 2023-07-31 14:15 | DI.CT.S_ITS ---
PROCEDURE: CT ABDOMEN PELVIS WO/W CON INDICATIONS: Pyeloplasty TECHNIQUE: Optional 5 mm thick noncontrast images acquired from the diaphragm to the symphysis pubis. After the administration of intravenous contrast, 5 mm thick images acquired from the diaphragm to the symphysis pubis after a 10-minute delay. 2 mm thick coronal and sagittal reformats were then performed of the kidneys and ureters. For radiation dose reduction, the following was used: automated exposure control, adjustment of mA and/or kV according to patient size. COMPARISON: [facility], CT, ABDOMEN/PELVIS WITH CONTRAST, 08/31/2016, 21:08. FINDINGS: Image quality: Diagnostic Lower chest: Basal atelectasis. Mildly ectatic distal esophagus. Liver: Unremarkable, no discrete lesion Gallbladder and biliary system: Is unremarkable, nondilated Pancreas: No ductal dilation or discrete mass Spleen: Nonenlarged Adrenals: No discrete nodules Kidneys: No calcified stone. No solid renal mass. Mild bilateral pelviectasis. No ureter filling defects. Non opacification of the right ureter may be secondary to peristalsis. No discrete mass is identified Vessels and lymph nodes: The main portal vein is patent. No abdominal aortic aneurysm or pathologic lymph nodes by size criteria. Bowel and peritoneum: No evidence of small bowel obstruction. No pathologic ascites. Moderate fecal loading. The appendix is nondilated. Body wall: Small fat containing umbilical hernia Pelvis: No calcified stones identified. No discrete bladder mass. Unremarkable limited CT evaluation of the reproductive organs. Bones: No acute or suspicious osseous findings. IMPRESSION: Mild bilateral pelviectasis. No discrete calcified stone or mass identified. The lower tracts could be better evaluated with cystoscopy if needed. Dictated by: Jose Cesar M.D. on 07/31/2023 at 15:08 Approved by: Jose Cesar M.D. on 07/31/2023 at 15:13
== END ==
PROVIDERS: PCP Family Medicine; Referring Provider Urology; Visit Provider Urology
DX: N39.0 Urinary tract infection, site not specified (principal); R31.21 Asymptomatic microscopic hematuria; N28.89 Other specified disorders of kidney and ureter; K42.9 Umbilical hernia without obstruction or gangrene; Z98.890 Other specified postprocedural states; Z87.448 Personal history of other diseases of urinary system
CPT/HCPCS: 74178; Q9967

== ENCOUNTER → 2024-03-19 12:23 | Outpatient (CLI) | payer OTHER, SELFPAY | PROVIDERS: PCP Family Medicine; Visit Provider Physician Assistant | DX: R30.0 Dysuria (principal); N39.0 Urinary tract infection, site not specified; R31.9 Hematuria, unspecified | CPT/HCPCS: 87077; 87086; 87186 ==

== ENCOUNTER → 2024-06-20 | Outpatient (CLI) | payer OTHER, SELFPAY ==
--- NOTE | 2024-06-20 12:57 | DI.MG.S_ITS ---
BILATERAL DIGITAL SCREENING MAMMOGRAM 3D/2D WITH CAD: 06/20/2024 CLINICAL: Routine screening. Family history of breast cancer. Comparison is made to exam dated: 05/04/2023 mammogram - [facility]. The breasts are heterogeneously dense, which may obscure small masses (category c / 51-75% glandular tissue). Current study was also evaluated with a Computer Aided Detection (CAD) system. No significant masses, calcifications, or other findings are seen in either breast. There has been no significant interval change. IMPRESSION: NEGATIVE There is no mammographic evidence of malignancy. A 1 year screening mammogram is recommended. Based on the Tyrer Cuzick model (a risk assessment model) the patient's lifetime risk is 19.3% and her 10 year risk is 2.7%. According to the ACR, ACS, and NCCN guidelines, an annual breast MRI exam along with mammogram is recommended if the patient's lifetime risk is 20% or greater. This exam was interpreted at Station ID: [id number]. NOTE: For mammograms, a report in lay terms will be sent to the patient. Approximately 15% of breast malignancies will not be visualized mammographically. In the management of a palpable breast mass, a negative mammogram must not discourage biopsy of a clinically suspicious lesion. Electronically Signed By: Rod martinez/valeria:06/26/2024 18:46:57 letter sent: Normal Exam ACR BI-RADS Category 1: Negative
== END ==
PROVIDERS: PCP Family Medicine; Referring Provider Family Medicine; Visit Provider Family Medicine
DX: Z12.31 Encounter for screening mammogram for malignant neoplasm of breast (principal); Z80.3 Family history of malignant neoplasm of breast; R92.333 Mammographic heterogeneous density, bilateral breasts
CPT/HCPCS: 77063; 77067

== ENCOUNTER → 2024-11-25 09:14 | Outpatient (CLI) | payer OTHER, SELFPAY ==
[2024-11-25 09:53] LABS: Add Manual Diff / Slide Review NO; Hematocrit 40.7 % (36-46); Hemoglobin 14.2 g/dL (12.0-16.0); Lymphocytes Absolute Auto 1400 /uL (1100-4500); Mean Corpuscular HGB Conc 35.0 % (30-36); Mean Corpuscular Hemoglobin 32.5 PG (26-34); Mean Corpuscular Volume 93.0 fL (80-100); Platelet Count 220 X10^3/uL (150-400)
[2024-11-25 10:04] LABS: Hemoglobin A1C% w Est Avg Glu 5.1 % (4.0-6.0)
[2024-11-25 10:20] LABS: Cholesterol 216 mg/dL (140-199); HDL Cholesterol 63 mg/dL (40-60); Triglycerides 113 mg/dL (35-150)
[2024-11-25 10:43] LABS: Thyroid Stimulating Hormone 2.12 uIU/mL (0.47-4.68)
== END ==
PROVIDERS: PCP Family Medicine; Referring Provider Family Medicine; Visit Provider Family Medicine
DX: E66.9 Obesity, unspecified (principal)
CPT/HCPCS: 36415; 80061; 83036; 84443; 85025

== ENCOUNTER → 2025-01-08 12:51 | Outpatient (CLI) | payer OTHER, SELFPAY ==
--- NOTE | 2025-01-08 12:52 | DI.US.S_ITS ---
PROCEDURE: US PELVIC COMPLETE INDICATIONS: ongoing pelvic pain TECHNIQUE: Real-time scanning was performed of the pelvic organs, with image documentation. Additional endovaginal scanning was necessary due to incomplete visualization of the adnexal and endometrial structures by transabdominal scanning. COMPARISON: [facility], , US PELVIC COMPLETE, 06/27/2023, 13:55. FINDINGS: Uterus: Uterus is anteverted and minimally enlarged in size at 10.2 x 4.7 x 6.2 cm. The myometrium is homogeneous. The endometrium measures 12 mm combined thickness. There is a 6 mm intramural uterine fibroid seen on the left anteriorly. Ovaries: The right ovary measures 3.4 x 4.4 x 2.4 cm, with a calculated ovarian volume of 18.9 cc. The left ovary measures 2.7 x 2 x 1.1 cm, with a calculated ovarian volume of 2.9 cc. The ovaries have a normal sonographic appearance, with a cystic follicle seen within the right ovary measuring up to 2.4 cm, which is considered to be within physiologic limits. Less than 12 follicles can be seen in each ovary. No adnexal masses are seen. Other: No pathologic free abdominal or pelvic fluid. IMPRESSION: No imaging explanation is found for this patient's presenting symptoms. We strive to produce accurate, complete, and clear reports of imaging services. To assist us in improving patient care, this report was composed using standard report templates and voice recognition software. Therefore, it may contain abnormal punctuation, insertions and/or omissions. Occasional wrong-word or sound-alike substitutions may occur. Though we review the report and make efforts to correct it, we do recommend that the report be read carefully in proper context to recognize any text inaccuracies. Dictated by: Mateo Pardo M.D. on 01/08/2025 at 12:24 Approved by: Mateo Pardo M.D. on 01/08/2025 at 12:27
== END ==
PROVIDERS: PCP Family Medicine; Referring Provider Family Medicine; Visit Provider Obstetrics & Gynecology
DX: D25.1 Intramural leiomyoma of uterus (principal); R10.2 Pelvic and perineal pain
CPT/HCPCS: 76830; 76856